=== PATIENT | female | born 1970 | race Caucasian/White ===

== ENCOUNTER → 2016-11-29 | Outpatient (CLI) | payer BC, OTHER ==
--- NOTE | 2016-11-29 10:15 | US ---
Bilateral Screening Breast Ultrasound, complete History: Screening Technique: Ultrasound exam with a high frequency linear transducer of both breasts and axillary areas . Findings: No suspicious abnormality identified in either breast. Impression: Negative screening. Recommendation: Screening ultrasound in 1 year. Results and recommendation were discussed with the patient at the time of the examination. BI-RADS 1 negative.
--- NOTE | 2016-11-29 12:11 | MA ---
Screening Digital Mammogram With Tomosynthesis Clinical Indications: Routine screening. Technique: Standard digital cephalocaudal and tomosynthesis mediolateral oblique projections are obt ained. An additional oblique lateral digital view was performed of the left breast. The digital imag es were processed by the [employer] computer aided detection system. Comparison: November 2015 and 2014, October 2013, October 2012 Breast density: B; There are scattered fibroglandular densities. Findings: CAD was reviewed. No suspicious findings are identified. Impression: Negative mammogram. BI-RADS 1. Recommendation: Routine screening is recommended in one year. [facility] will send a result letter to the patient. Negative mammography should not preclude additional workup of a clinically suspicious finding. The patient's information is entered into a reminder system with a target due date for her next mammo gram.
== END ==
LOC: FIMAGING 08:47
PROVIDERS: ATTEND Family Medicine
DX: Z12.31 Encounter for screening mammogram for malignant neoplasm of breast (principal)
CPT/HCPCS: G0202